=== PATIENT | female | born 1935 | race Caucasian/White ===

== ENCOUNTER 2021-11-25 09:55 | Emergency (ER) | payer MEDICARE, BC ==
[~2021-11-25 09:55] MED LIST: ALL DAY ALLERGY10 MG PO; AMIODARONE HCL200 MG PO; ASPIRIN EC81 MG PO; ATORVASTATIN CA20 MG PO; CLOPIDOGREL75 MG PO; IMDUR ER TAB 3030 MG PO; LOPRESSOR 25 MG25 MG PO; MELATONIN1 MG PO; NITROGLYCERIN0.4 MG SL; PANTOPRAZOLE SO40 MG PO; VITAMIN B COMP1 EACH PO; VITAMIN D2000 UNI1 PO; ZOLOFT25 MG PO
[2021-11-25 10:34] LABS: HEMOGLOBIN 11.1 gm/dl (12.3-15.3); RED BLOOD COUNT 3.78 M/UL (4.00-5.10); WHITE BLOOD COUNT 8.6 K/UL (4.5-11.0)
== END 2021-11-25 14:27 | disposition home or self-care (01) ==
LOC: ER1 09:55
PROVIDERS: Emergency Medicine
DX: U07.1 COVID-19 (principal); F03.90 Unspecified dementia, unspecified severity, without behavioral disturbance, psychotic disturbance, mood disturbance, and anxiety; X31.XXXA Exposure to excessive natural cold, initial encounter
CPT/HCPCS: 70450; 71045; 80053; 80307; 81001; 82550; 82553; 83605; 83874; 84484; 85025; 93005; 99285; U0002